=== PATIENT | male | born 1980 | race Caucasian/White ===

== ENCOUNTER 2022-11-12 09:00 | Outpatient (OUT) | payer BC, SELFPAY ==
--- NOTE | 2022-11-12 09:16 | XR_ITS ---
[place] [id number] Patient Name: JACOB SILVA MRN: [id number] date: 1980 Sex: M Assigned Patient Location: RAD Current Patient Location: [facility] Accession/Order Number: [id number] Exam Date: 11/12/2022 09:23 Report Date: 11/12/2022 10:09 At the request of: LEEANNA DURBIN Procedure: XR lumbar spine 2-3V EXAM: XR lumbar spine 2-3V HISTORY: Lumbar Radiculopathy M54.16 COMPARISON: None. TECHNIQUE: 3 views FINDINGS: Satisfactory alignment. Maintained vertebral body heights. Multilevel endplate degenerative changes and disc disease of L4-S1. No acute fracture or subluxation. Nonobstructive bowel gas pattern. XR/XR lumbar spine 2-3V IMPRESSION: Mild degenerative changes and disc disease as above. Electronically authenticated by: GOYO BAIRD Date: 11/12/2022 10:09
== END 2022-11-12 09:01 | disposition home or self-care (01) ==
LOC: RAD 09:06
PROVIDERS: PCP Family Medicine; Visit Provider Family Medicine
DX: M54.16 Radiculopathy, lumbar region (principal)
CPT/HCPCS: 72100